=== PATIENT | female | born 1995 | race Caucasian/White ===

== ENCOUNTER 2017-07-13 10:58 | Emergency (ER) | payer BC, OTHER ==
[~2017-07-13] VITALS: Ht 165.1 cm; Wt 70.6 kg
[2017-07-13 10:58] VITALS: BP 129/71
[2017-07-13] MEDS ORDERED: MICR1TAB10 (11:12)
[2017-07-13] MEDS ORDERED: NAPR500T PO (12:46)
== END 2017-07-13 13:10 | disposition home or self-care (01) ==
LOC: M ED 10:58
DX: S29.011A Strain of muscle and tendon of front wall of thorax, initial encounter (principal); X50.3XXA Overexertion from repetitive movements, initial encounter; Y92.89 Other specified places as the place of occurrence of the external cause; Y93.02 Activity, running; Y99.9 Unspecified external cause status

== ENCOUNTER → 2025-06-14 | Outpatient (REF) | payer BC, OTHER ==
[~2025-06-14] MED LIST: NAPR-837 PO; NORE1TAB94
== END ==
LOC: M LAB REF 20:54
PROVIDERS: ATTEND Physician Assistant
DX: R30.0 Dysuria (principal)